=== PATIENT | female | born 1985 | race Caucasian/White ===

== ENCOUNTER 2017-04-28 15:44 | Emergency (ER) | payer OTHER ==
[~2017-04-28] VITALS: Ht 160 cm; Wt 79.0 kg
[~2017-04-28 15:44] MED LIST: CIPR500T4 PO; FERR240T9; IBUP-1542 PO; NITR-58 PO; PREN1TAB49; PREN1TAB62 PO; PRO20 PO
[2017-04-28 15:53] VITALS: Ht 160 cm; Wt 79.0 kg
[2017-04-28] MEDS ORDERED: KETOROLAC 30 MG INJ IM STA (16:45)
[2017-04-28 16:58] LABS: URINE BLOOD (Dip) POC 2+ (NEGATIVE)
[2017-04-28] MEDS ORDERED: NAPR-260 PO (17:13)
[2017-04-28] MEDS ORDERED: CEPH-443 PO (17:13)
--- NOTE | 2017-04-28 17:34 | ERD ---
ER Documentation Chief Complaint Date/Time DATE: 04/28/17 TIME: 17:18 Chief Complaint BILATERAL FLANK PAIN X 3 DAYS HPI This patient is a 32-year-old female presenting to the emergency department with complaints of bilateral paraspinal lumbar pain as well as dysuria which is been ongoing intermittently for the past 3 days. Her back pain is worse with standing. She denies radiation of pain. She denies trauma, injury, hematuria, fevers, chills, or other symptoms. She denies loss of bowel or bladder function. ROS All systems reviewed and are negative except as per history of present illness. Medications Home Meds Active Scripts Naproxen* (Naprosyn*) 500 Mg Tablet, 500 MG PO BID Y for PAIN AND/OR INFLAMMATION, #30 TAB Prov:YOSHI SRINIVASAN PA-C 04/28/17 Cephalexin* (Keflex*) 500 Mg Capsule, 500 MG PO TID for 7 Days, #21 CAP Prov:YOSHI SRINIVASAN PA-C 04/28/17 Ciprofloxacin Hcl* (Ciprofloxacin Hcl*) 500 Mg Tablet, 500 MG PO BID for 7 Days , TAB Prov:UCHE HARTLEY PA-C 06/06/16 Ibuprofen* (Motrin*) 600 Mg Tab, 600 MG PO Q6, #30 TAB Prov:UCHE HARTLEY PA-C 06/06/16 Reported Medications Vit-Iron Fumarate-FA ( Vitamin Tablet) 1 Each Tablet, 1 TAB PO AM, TAB 08/01/14 Ferrous Gluconate (Iron) 1 Tab Tablet 06/06/10 Allergies Allergies: Coded Allergies: No Known Drug Allergy (Verified Allergy, Unknown, 08/16/14) PMhx/Soc Medical and Surgical Hx: pt denies Medical Hx, pt denies Surgical Hx Hx Alcohol Use: No Hx Substance Use: No Hx Tobacco Use: No Smoking Status: Never smoker Physical Exam Vitals Vital Signs Date Time Temp Pulse Resp B/P Pulse Ox O2 Delivery O2 Flow Rate FiO2 04/28/17 15:53 99.5 86 18 136/92 96 Physical Exam Const: Nontoxic, well-appearing female in no acute distress. Head: Atraumatic Eyes: Normal Conjunctiva ENT: Normal External Ears, Nose and Mouth. Neck: Full range of motion..~ No meningismus. Resp: Clear to auscultation bilaterally Cardio: Regular rate and rhythm, no murmurs Abd: Soft, non tender, non distended. Normal bowel sounds Skin: No petechiae or rashes Back: No midline or flank tenderness. No CVA tenderness. Mild paraspinal tenderness to the lumbar muscles. Ext: No cyanosis, or edema Neur: Awake and alert Psych: Normal Mood and Affect Results 24 hrs Laboratory Tests Test 04/28/17 17:04 Bedside Urine pH (LAB) 7.0 Bedside Urine Protein (LAB) Negative Bedside Urine Glucose (UA) Negative Bedside Urine Ketones (LAB) Negative Bedside Urine Blood 2+ Bedside Urine Nitrite (LAB) Negative Bedside Urine Leukocyte Esterase (L Trace Current Medications Medications (Trade) Dose Ordered Sig/Scooter Route PRN Reason Start Time Stop Time Status Last Admin Dose Admin Ketorolac Tromethamine (Toradol) 30 mg ONCE STAT IM 04/28/17 16:45 04/28/17 16:47 DC 04/28/17 16:56 Procedures/MDM 32-year-old female presenting to the emergency department with complaints of bilateral paraspinal lumbar pain as well as dysuria. Urine dip was concerning for possible early uncomplicated urinary tract infection but no proteinuria indicating pyelonephritis. I have low suspicion for ascending urinary tract infection, cauda equina, epidural abscess, sepsis, or other emergent conditions. She is given IM Toradol in the department she is feeling significantly improved on reevaluation. I will treat her as an outpatient with a prescription for Keflex for urinary tract infection as well as naproxen to be taken as needed for back pain. She is to certainly return to the emergency department immediately for any new or worsening symptoms. She is to have close follow-up with her primary care physician. Departure Diagnosis: Primary Impression: Urinary tract infection Urinary tract infection type: site unspecified Hematuria presence: without hematuria Qualified Code: N39.0 - Urinary tract infection without hematuria, site unspecified Additional Impression: Back pain Back pain location: low back pain Chronicity: acute Back pain laterality: unspecified Sciatica presence: unspecified whether sciatica present Qualified Code: M54.5 - Acute low back pain, unspecified back pain laterality, with sciatica presence unspecified Condition: Fair Patient Instructions: Understanding Urinary Tract Infections (UTIs), Back Pain (Acute Or Chronic) Referrals: [facility] YOU HAVE RECEIVED A MEDICAL SCREENING EXAM AND THE RESULTS INDICATE THAT YOU DO NOT HAVE A CONDITION THAT REQUIRES URGENT TREATMENT IN THE EMERGENCY DEPARTMENT. FURTHER EVALUATION AND TREATMENT OF YOUR CONDITION CAN WAIT UNTIL YOU ARE SEEN IN YOUR DOCTORS OFFICE WITHIN THE NEXT 1-2 DAYS. IT IS YOUR RESPONSIBILITY TO MAKE AN APPOINTMENT FOR FOLOW-UP CARE. IF YOU HAVE A PRIMARY DOCTOR --you should call your primary doctor and schedule an appointment IF YOU DO NOT HAVE A PRIMARY DOCTOR YOU CAN CALL OUR PHYSICIAN REFERRAL HOTLINE AT IF YOU CAN NOT AFFORD TO SEE A PHYSICIAN YOU CAN CHOSE FROM THE FOLLOWING [facility] [address] [facility] [id number] [facility] [address] [facility] [address] [facility] [address] [facility]. [facility] [address] Additional Instructions: Follow up with your PCP within the next 1-3 days for a repeat evaluation. If you require a referral to a specialist, your Primary Care Provider may be able to provide this for you. In most patient cases, a referral is not required. If you have further questions regarding this matter, please ask your Primary Care Provider. Return the the emergency department immediately if symptoms worsen or change. If you have any questions regarding medications, ask your pharmacist or us before you leave. If any adverse reactions, occur while taking your medications, discontinue the treatment and return to the emergency department immediately. If any new or worsening symptoms, uncontrolled fevers, or other unexplained symptoms occur, return to the emergency department immediately. Take your medications as directed, and complete the entire course of treatment. YOSHI SRINIVASAN PA-C Apr 28, 2017 17:28
== END 2017-04-28 17:37 | disposition home or self-care (01) ==
LOC: FTE 15:44
DX: N39.0 Urinary tract infection, site not specified (principal); M54.5 Low back pain
CPT/HCPCS: 81003; 96372; J1885; Z7502